=== PATIENT | male | born 1955 | race Caucasian/White ===

== ENCOUNTER 2017-06-14 15:03 | Emergency (ER) | payer OTHER ==
[2017-06-14] MEDS: ALBUTEROL 0.083% (NEB) 2.5 MG/3 ML AMP HHN (16:01)
[2017-06-14] MEDS: IPRATROPIUM (NEB) 0.5 MG/2.5 ML AMP HHN (16:01)
[2017-06-14] MEDS: morphine 4 MG/ML VIAL IV (16:19)
[2017-06-14] MEDS: ASPIRIN 325 MG TAB PO (16:19)
[2017-06-14 16:30] LABS: ADD MAN DIFF? NO
[2017-06-14 16:33] LABS: BASOPHIL # 0.1 10^3/ul (0.0-0.1); BASOPHILS % 0.8 % (0.0-2.0); EOSINOPHILS # 0.1 10^3/ul (0.0-0.5); EOSINOPHILS % 1.3 % (0.0-7.0); HEMATOCRIT 29.1 % (42.0-52.0); HEMOGLOBIN 9.3 g/dl (14.0-18.0); LYMPHOCYTES # 2.3 10^3/ul (0.8-2.9); LYMPHOCYTES % 36.9 % (15.0-51.0); MEAN CORPUSCULAR HEMOGLOBIN 26.1 pg (29.0-33.0); MEAN CORPUSCULAR VOLUME 81.5 fl (82.0-101.0); MEAN PLATELET VOLUME 9.5 fl (7.4-10.4); MONOCYTE # 0.5 10^3/ul (0.3-0.9); MONOCYTES % 7.2 % (0.0-11.0); NEUTROPHIL # 3.3 10^3/ul (1.6-7.5); NEUTROPHILS % 53.5 % (39.0-77.0); PLATELET COUNT 274 10^3/UL (140-415); RED BLOOD COUNT 3.57 10^6/ul (4.70-6.10); RED CELL DISTRIBUTION WIDTH 14.7 % (11.5-14.5)
[2017-06-14 16:33] LABS: WHITE BLOOD COUNT 6.2 10^3/ul (4.8-10.8)
[2017-06-14 16:51] LABS: ANION GAP 19 (8-16); BLOOD UREA NITROGEN 19 mg/dl (7-20); CALCIUM 8.5 mg/dl (8.4-10.2); CARBON DIOXIDE 23 mmol/L (21-31); CHLORIDE 102 mmol/L (97-110); CREATININE 0.98 mg/dl (0.61-1.24); GLUCOSE 96 mg/dl (70-220); POTASSIUM 4.1 mmol/L (3.5-5.1); SODIUM 140 mmol/L (135-144)
[2017-06-14] MEDS: METHOCARBAMOL 750 MG TAB PO (16:56)
[2017-06-14 17:02] LABS: B-TYPE NATRIURETIC PEPTIDE 1320 PG/ML (0-125)
[2017-06-14 17:07] LABS: TROPONIN-I < 0.012 ng/ml (0.00-0.12)
[2017-06-14] MEDS: predniSONE 20 MG TAB PO (19:36)
== END 2017-06-14 21:03 | disposition home or self-care (01) ==
LOC: E/R 15:03
DX: D50.9 Iron deficiency anemia, unspecified (principal); M54.41 Lumbago with sciatica, right side; J44.1 Chronic obstructive pulmonary disease with (acute) exacerbation; R40.2142 Coma scale, eyes open, spontaneous, at arrival to emergency department; R40.2252 Coma scale, best verbal response, oriented, at arrival to emergency department; R40.2362 Coma scale, best motor response, obeys commands, at arrival to emergency department; Z95.0 Presence of cardiac pacemaker; Z87.891 Personal history of nicotine dependence
CPT/HCPCS: 36415; 71045; 80048; 83880; 84484; 85025; 93005; 94664; 96374; 99285-25

== ENCOUNTER 2017-08-19 16:54 | Inpatient (IN) | payer OTHER ==
[2017-08-19] MEDS ORDERED: NACL 0.9% 3 ML SYG IV (19:00)
[2017-08-19] MEDS ORDERED: ACETAMINOPHEN 325 MG TAB PO (19:00)
[2017-08-19] MEDS ORDERED: ONDANSETRON 4 MG INJ IV (19:00)
[2017-08-19] MEDS ORDERED: METOCLOPRAMIDE 10 MG TAB PO (19:00)
[2017-08-19 19:50] LABS: ADD MAN DIFF? NO
[2017-08-19 19:52] LABS: BASOPHILS % 1.1 % (0.0-2.0); EOSINOPHILS # 0.2 10^3/ul (0.0-0.5); EOSINOPHILS % 4.2 % (0.0-7.0); HEMATOCRIT 23.9 % (42.0-52.0); HEMOGLOBIN 7.3 g/dl (14.0-18.0); LYMPHOCYTES # 0.9 10^3/ul (0.8-2.9); LYMPHOCYTES % 24.9 % (15.0-51.0); MEAN CORPUSCULAR HEMOGLOBIN 23.3 pg (29.0-33.0); MEAN CORPUSCULAR HGB CONC 30.5 g/dl (32.0-37.0); MEAN CORPUSCULAR VOLUME 76.4 fl (82.0-101.0); MEAN PLATELET VOLUME 9.3 fl (7.4-10.4); MONOCYTE # 0.5 10^3/ul (0.3-0.9); MONOCYTES % 12.7 % (0.0-11.0); NEUTROPHILS % 56.8 % (39.0-77.0); PLATELET COUNT 231 10^3/UL (140-415); RED BLOOD COUNT 3.13 10^6/ul (4.70-6.10); RED CELL DISTRIBUTION WIDTH 16.6 % (11.5-14.5)
[2017-08-19 19:52] LABS: WHITE BLOOD COUNT 3.5 10^3/ul (4.8-10.8)
[2017-08-19 20:10] LABS: INR 1.15; PROTIME 14.9 Sec (11.9-14.9); PT RATIO 1.2
[2017-08-19 20:13] LABS: ANION GAP 17 (8-16); BLOOD UREA NITROGEN 15 mg/dl (7-20); CALCIUM 8.7 mg/dl (8.4-10.2); CARBON DIOXIDE 24 mmol/L (21-31); CHLORIDE 109 mmol/L (97-110); CREATININE 1.02 mg/dl (0.61-1.24); GLUCOSE 122 mg/dl (70-220); POTASSIUM 4.5 mmol/L (3.5-5.1); SODIUM 145 mmol/L (135-144)
[2017-08-19] MEDS: METOPROLOL 25 MG TAB PO (20:31)
[2017-08-20] MEDS: PANTOPRAZOLE 40 MG INJ IV (05:20)
[2017-08-20] MEDS: FUROSEMIDE 40 MG TAB PO ×2 (05:23→19:28)
[2017-08-20 05:54] LABS: ADD MAN DIFF? NO
[2017-08-20 05:58] LABS: BASOPHILS % 1.2 % (0.0-2.0); EOSINOPHILS # 0.2 10^3/ul (0.0-0.5); EOSINOPHILS % 5.9 % (0.0-7.0); HEMATOCRIT 23.9 % (42.0-52.0); HEMOGLOBIN 7.3 g/dl (14.0-18.0); LYMPHOCYTES # 0.7 10^3/ul (0.8-2.9); LYMPHOCYTES % 21.8 % (15.0-51.0); MEAN CORPUSCULAR HEMOGLOBIN 23.5 pg (29.0-33.0); MEAN CORPUSCULAR HGB CONC 30.5 g/dl (32.0-37.0); MEAN CORPUSCULAR VOLUME 77.1 fl (82.0-101.0); MONOCYTE # 0.4 10^3/ul (0.3-0.9); MONOCYTES % 12.8 % (0.0-11.0); NEUTROPHIL # 1.9 10^3/ul (1.6-7.5); PLATELET COUNT 245 10^3/UL (140-415); RED CELL DISTRIBUTION WIDTH 16.6 % (11.5-14.5)
[2017-08-20 05:58] LABS: WHITE BLOOD COUNT 3.2 10^3/ul (4.8-10.8)
[2017-08-20 06:18] LABS: PHOSPHORUS 3.5 mg/dl (2.5-4.9)
[2017-08-20 06:18] LABS: MAGNESIUM 1.8 mg/dl (1.7-2.5)
[2017-08-20 06:28] LABS: ANION GAP 14 (8-16); BLOOD UREA NITROGEN 10 mg/dl (7-20); CALCIUM 8.8 mg/dl (8.4-10.2); CARBON DIOXIDE 26 mmol/L (21-31); CHLORIDE 110 mmol/L (97-110); CREATININE 0.93 mg/dl (0.61-1.24); GLUCOSE 96 mg/dl (70-220); POTASSIUM 4.4 mmol/L (3.5-5.1); SODIUM 146 mmol/L (135-144)
[2017-08-20] MEDS: morphine 2 MG INJ IV (10:34)
[2017-08-20] MEDS: LISINOPRIL 5 MG TAB PO (10:41)
[2017-08-20] MEDS: METOPROLOL 25 MG TAB PO ×2 (10:41→21:19)
[2017-08-20] MEDS: HYDROCODONE/APAP (5/325) TAB PO ×3 (11:52→21:19)
[2017-08-20] MEDS: DIGOXIN 0.25 MG TAB PO (14:00)
[2017-08-20 15:58] LABS: HEMOGLOBIN 7.6 g/dl (14.0-18.0)
[2017-08-20] MEDS: PEG/ELECTROLYTES 4L BTL PO ×2 (19:29→20:08)
[2017-08-20] MEDS: BISACODYL (EC) 5 MG TAB PO (19:33)
[2017-08-21] MEDS: HYDROCODONE/APAP (5/325) TAB PO ×5 (01:22→21:35)
[2017-08-21] MEDS: PANTOPRAZOLE 40 MG INJ IV (05:36)
[2017-08-21] MEDS: FUROSEMIDE 40 MG TAB PO ×2 (05:37→15:50)
[2017-08-21 05:39] LABS: ADD MAN DIFF? NO
[2017-08-21 05:42] LABS: BASOPHILS % 0.9 % (0.0-2.0); EOSINOPHILS # 0.2 10^3/ul (0.0-0.5); EOSINOPHILS % 6.1 % (0.0-7.0); HEMATOCRIT 23.7 % (42.0-52.0); HEMOGLOBIN 7.1 g/dl (14.0-18.0); LYMPHOCYTES # 1.1 10^3/ul (0.8-2.9); LYMPHOCYTES % 30.3 % (15.0-51.0); MEAN CORPUSCULAR HEMOGLOBIN 23.1 pg (29.0-33.0); MEAN CORPUSCULAR VOLUME 77.2 fl (82.0-101.0); MEAN PLATELET VOLUME 9.2 fl (7.4-10.4); MONOCYTE # 0.5 10^3/ul (0.3-0.9); MONOCYTES % 13.3 % (0.0-11.0); NEUTROPHIL # 1.7 10^3/ul (1.6-7.5); NEUTROPHILS % 49.1 % (39.0-77.0); PLATELET COUNT 218 10^3/UL (140-415); RED BLOOD COUNT 3.07 10^6/ul (4.70-6.10); RED CELL DISTRIBUTION WIDTH 16.9 % (11.5-14.5)
[2017-08-21 05:42] LABS: WHITE BLOOD COUNT 3.5 10^3/ul (4.8-10.8)
[2017-08-21 05:54] LABS: PHOSPHORUS 3.1 mg/dl (2.5-4.9)
[2017-08-21 05:54] LABS: ANION GAP 13 (8-16); BLOOD UREA NITROGEN 15 mg/dl (7-20); CALCIUM 8.7 mg/dl (8.4-10.2); CARBON DIOXIDE 28 mmol/L (21-31); CHLORIDE 107 mmol/L (97-110); CREATININE 0.88 mg/dl (0.61-1.24); GLUCOSE 86 mg/dl (70-220); MAGNESIUM 1.7 mg/dl (1.7-2.5); POTASSIUM 3.8 mmol/L (3.5-5.1); SODIUM 144 mmol/L (135-144)
[2017-08-21 06:12] LABS: INR 1.08; PROTIME 14.1 Sec (11.9-14.9); PT RATIO 1.1
[2017-08-21] MEDS: LISINOPRIL 5 MG TAB PO (11:00)
[2017-08-21] MEDS: METOPROLOL 25 MG TAB PO ×2 (11:00→21:34)
[2017-08-21 11:04] LABS: IMMEDIATE SPIN CROSSMATCH 1 1
[2017-08-21] MEDS: DIGOXIN 0.25 MG TAB PO (13:05)
[2017-08-21] MEDS: FERROUS SULFATE 60 MG/ML 5ML CUP PO (21:30)
[2017-08-22] MEDS: HYDROCODONE/APAP (5/325) TAB PO (02:18)
[2017-08-22 05:38] LABS: ADD MAN DIFF? NO
[2017-08-22] MEDS: PANTOPRAZOLE 40 MG INJ IV (05:38)
[2017-08-22] MEDS: FUROSEMIDE 40 MG TAB PO (05:39)
[2017-08-22 05:41] LABS: BASOPHILS % 0.9 % (0.0-2.0); EOSINOPHILS # 0.2 10^3/ul (0.0-0.5); EOSINOPHILS % 5.9 % (0.0-7.0); HEMATOCRIT 28.2 % (42.0-52.0); HEMOGLOBIN 8.5 g/dl (14.0-18.0); LYMPHOCYTES % 30.3 % (15.0-51.0); MEAN CORPUSCULAR HEMOGLOBIN 23.2 pg (29.0-33.0); MEAN CORPUSCULAR HGB CONC 30.1 g/dl (32.0-37.0); MEAN PLATELET VOLUME 9.5 fl (7.4-10.4); MONOCYTE # 0.4 10^3/ul (0.3-0.9); MONOCYTES % 13.1 % (0.0-11.0); NEUTROPHIL # 1.7 10^3/ul (1.6-7.5); NEUTROPHILS % 49.8 % (39.0-77.0); PLATELET COUNT 214 10^3/UL (140-415); RED BLOOD COUNT 3.66 10^6/ul (4.70-6.10); RED CELL DISTRIBUTION WIDTH 16.9 % (11.5-14.5)
[2017-08-22 05:41] LABS: WHITE BLOOD COUNT 3.4 10^3/ul (4.8-10.8)
[2017-08-22] MEDS: OXYCODONE/ACETAMINOPHEN (10/325) TAB PO ×2 (06:35→12:16)
[2017-08-22] MEDS: FERROUS SULFATE 60 MG/ML 5ML CUP PO ×2 (08:26→12:16)
[2017-08-22] MEDS: METOPROLOL 25 MG TAB PO (08:26)
[2017-08-22] MEDS: LISINOPRIL 5 MG TAB PO (08:26)
[2017-08-22] MEDS: DIGOXIN 0.25 MG TAB PO (12:16)
[2017-08-22] MEDS ORDERED: PANTOPRAZOLE (EC) 40 MG TAB PO (18:00)
== END 2017-08-22 13:33 | disposition home or self-care (01) | DRG 300 ==
LOC: MS3 16:54
PROVIDERS: Pediatrics
PROC: 0DJD8ZZ Inspection of Lower Intestinal Tract, Via Natural or Artificial Opening Endoscopic (ICD-10-PCS; principal; 2017-08-21 09:25)
PROC: 30233N1 Transfusion of Nonautologous Red Blood Cells into Peripheral Vein, Percutaneous Approach (ICD-10-PCS; 2017-08-21 09:25)
DX: Q27.33 Arteriovenous malformation of digestive system vessel (principal); K92.2 Gastrointestinal hemorrhage, unspecified; D68.9 Coagulation defect, unspecified; D62 Acute posthemorrhagic anemia; R55 Syncope and collapse; G89.4 Chronic pain syndrome; E78.5 Hyperlipidemia, unspecified; I11.0 Hypertensive heart disease with heart failure; I50.9 Heart failure, unspecified; K31.9 Disease of stomach and duodenum, unspecified; Z93.3 Colostomy status; Z95.0 Presence of cardiac pacemaker; Z85.038 Personal history of other malignant neoplasm of large intestine; Z87.891 Personal history of nicotine dependence
CPT/HCPCS: 36430; 80048; 83735; 84100; 85018; 85025; 85610; 85730; 86850; 86900; 86901; 86920